=== PATIENT | female | born 1965 ===

== ENCOUNTER 2019-08-04 17:14 | Observation (INO) | payer MEDICAID, OTHER ==
[2019-08-04] MEDS ORDERED: LORazepam TAB(*) 1 MG PO ONE (17:45)
[2019-08-04] MEDS ORDERED: Ketorolac INJ* 30 MG/ML 1 ML VIAL IM ONE (17:45)
--- NOTE | 2019-08-04 17:45 | ED ---
Back Pain - HPI Summary HPI Summary: The patient is a a 53 y/o female presenting to [facility] accompanied by family with a chief complaint of atraumatic low back pain which is chronic but worsened around 1400 this afternoon. She reports that she has a history of back problems with unknown etiology, but it is usually well-managed. Today, she had been carrying wood, and then she developed severe back pain, so she sat down to rest. She placed a heating pad on the back to mild relief. When she stood up, she had increased pain and was unable to walk. Standing, lifting, bending, or any movement aggravates the pain. She endorses increased urgency to urinate but denies any incontinence of urine or stool. Pain is currently rated 10/10 in severity. She states that she has not had the pain as severe as todays episode. PMHx: asthma, kidney infection, fibromylagia. Nonsmoker, daily EtOH, no substance use. Medications reviewed. Allergies noted. - History of Current Complaint Chief Complaint: EDBackInjuryPain Stated Complaint: BACK PAIN PER PT Time Seen by Provider: 08/04/19 17:25 Hx Obtained From: Patient Onset/Duration: Sudden Onset, Lasting Hours, Still Present Onset/Duration: Started Hours Ago, Atraumatic, Still Present Timing: Constant Back Pain Location: Is Discrete @ - low back Severity Initially: Severe Severity Currently: Severe Pain Intensity: 10 Pain Scale Used: 0-10 Numeric Character: Sharp Aggravating Symptom(s): Movement, Lifting, Bending, Walking, Other - standing Alleviating Symptom(s): Nothing Associated Signs And Symptoms: Positive: Other - urgency of urine. Negative: Bladder Incontinence, Bowel Incontinence - Allergies/Home Medications Allergies/Adverse Reactions: Allergies Allergy/AdvReac Type Severity Reaction Status Date / Time MS Penicillins [Penicillins] Allergy Intermediate Hives Verified 07/16/16 10:11 Home Medications: Home Medications DULoxetine DR CAP* [Cymbalta CAP*] 60 mg PO DAILY 08/04/19 [History Confirmed ] Omeprazole (Nf) [Prilosec (NF)] 40 mg PO DAILY 08/04/19 [History Confirmed 08/04] PMH/Surg Hx/FS Hx/Imm Hx Endocrine/Hematology History: Denies: Hx Diabetes Cardiovascular History: Denies: Hx Congestive Heart Failure, Hx Hypertension, Hx Pacemaker/ICD Respiratory History: Reports: Hx Asthma, Hx Seasonal Allergies GI History: Reports: Hx Gastroesophageal Reflux Disease History: Reports: Hx Kidney Infection - 2010 Denies: Hx Dialysis, Hx Renal Disease Musculoskeletal History: Reports: Hx Back Problems, Hx Fibromyalgia, Other Musculoskeletal History - Cervical Pain Sensory History: Denies: Hx Hearing Aid Neurological History: Reports: Hx Migraine, Other Neuro Impairments/Disorders - States she has a Learning Disablility Psychiatric History: Reports: Hx Attention Deficit Hyperactivity Disorder, Hx Depression, Hx Suicide Attempt Denies: Hx Panic Disorder - Cancer History Hx Chemotherapy: No Hx Radiation Therapy: No - Surgical History Surgical History: Yes Surgery Procedure, Year, and Place: C-SECT 1989 Infectious Disease History: No Infectious Disease History: Denies: Traveled Outside the [place] in Last 30 Days - Family History Known Family History: Negative: Seizure Disorder - Social History Alcohol Use: Daily Hx Substance Use: No Substance Use Type: Reports: None Hx Tobacco Use: No Smoking Status (MU): Never Smoked Tobacco Review of Systems Negative: Other - incontinence of stool Positive: urgency. Negative: incontinence Positive: Arthralgia - low back All Other Systems Reviewed And Are Negative: Yes Physical Exam - Summary Physical Exam Summary: Appearance: The patient is well-nourished in no acute distress and in no acute pain. Skin: The skin is warm and dry, and skin color reflects adequate perfusion. HEENT: The head is normocephalic and atraumatic. The pupils are equal and reactive. The conjunctivae are clear and without drainage. Nares are patent and without drainage. Mouth reveals moist mucous membranes, and the throat is without erythema and exudate. The external ears are intact. The ear canals are patent and without drainage. The tympanic membranes are intact. Neck: The neck is supple with full range of motion and non-tender. There are no carotid bruits. There is no neck vein distension. Respiratory: Chest is non-tender. Lungs are clear to auscultation and breath sounds are symmetrical and equal. Cardiovascular: Heart is regular rate and rhythm. There is no murmur or rub auscultated. There is no peripheral edema and pulses are symmetrical and equal. Abdomen: The abdomen is soft and non-tender. There are normal bowel sounds heard in all four quadrants and there is no organomegaly palpated. Musculoskeletal: There is tenderness in the parasacral area. There is a negative straight leg raise. Extremities are non-tender with full range of motion. There is good capillary refill. There is no peripheral edema or calf tenderness elicited. Neurological: Patient is alert and oriented to person, place and time. The patient has symmetrical motor strength in all four extremities. Cranial nerves are grossly intact. Deep tendon reflexes are symmetrical and equal in all four extremities. Psychiatric: The patient has an appropriate affect and does not exhibit any anxiety or depression. Triage Information Reviewed: Yes Vital Signs On Initial Exam: Initial Vitals Temp Pulse Resp BP Pulse Ox 98.8 F 75 18 148/94 100 08/04/19 17:17 08/04/19 17:17 08/04/19 17:17 08/04/19 17:17 08/04/19 17:17 Vital Signs Reviewed: Yes Procedures - Sedation Patient Received Moderate/Deep Sedation with Procedure: No Diagnostics - Vital Signs Vital Signs Temp Pulse Resp BP Pulse Ox 08/04/19 17:17 98.8 F 75 18 148/94 100 - Laboratory Lab Statement: Any lab studies that have been ordered have been reviewed, and results considered in the medical decision making process. - CT Lumbar Spine CT CT Interpretation Completed By: Radiologist Summary of CT Findings: Impression: 1. Punctate nonobstructing left renal calculi. 2. Early degenerative disc and facet changes with no significant spinal or. foraminal stenosis. ED physician has reviewed this report. Re-Evaluation - Re-Evaluation First Eval Re-Evaluation Time: 21:20 Comment: We discussed results and plan for discharge if the patient is able to ambulate. Second Eval Re-Evaluation Time: 21:30 Comment: Patient unable to ambulate, will consult for admission Back Pain Course/Dx - Course Course Of Treatment: Ms. Davis was unable to get out of bed and ambulate in spite of parenteral ketorolac, by mouth Ativan and by mouth Percocet. After those medications she was much more comfortable in bed. CT showed no acute compression fracture. I spoke with Dr. Leonardo about admission for intractable pain - Diagnoses Provider Diagnoses: Low back strain - Provider Notifications Discussed Care Of Patient With: Margaret Leonardo - hospitalist Time Discussed With Above Provider: 21:45 Instructed by Provider To: Other - I discussed the patients case with Dr. Leonardo, who accepts the patient for admission. Discharge ED - Sign-Out/Discharge Documenting (check all that apply): Patient Departure - Patient accepted for admission by Dr. Leonardo. - Discharge Plan Condition: Stable Disposition: ADMITTED TO [facility] Referrals: Wilder Zuleta MD [Primary Care Provider] - - Billing Disposition and Condition Condition: STABLE Disposition: Admitted to [facility] - Attestation Statements Document Initiated by Raul: Yes Documenting Scribe: Trina Cleveland Provider For Whom Raul is Documenting (Include Credential): Dr. Rui Castellon MD Scribe Attestation: Trina Stokes scribed for Dr. Rui Castellon MD on 08/04/19 at 2150. Scribe Documentation Reviewed: Yes Provider Attestation: The documentation as recorded by the Trina puga accurately reflects the service I personally performed and the decisions made by me, Dr. Rui Castellon MD Status of Scribe Document: Viewed
[2019-08-04] MEDS ORDERED: oxyCODONE/Acetamin 5/325 MG* TAB PO ONE ×2 (19:45→19:46)
[2019-08-04] MEDS ORDERED: Acetaminophen TAB* 325 MG PO PRN (23:07)
[2019-08-04] MEDS ORDERED: Morphine INJ* 2 MG/ML 1 ML SYRINGE (TWO MG - NEW SYRINGE VERSION) IV PRN (23:07)
[2019-08-04] MEDS ORDERED: Ibuprofen TAB* 600 MG PO PRN (23:37)
[2019-08-04] MEDS ORDERED: Enoxaparin(*) 40 MG/0.4 ML SYR SUBCUT SCH (23:45)
[2019-08-05] MEDS: oxyCODONE/Acetamin 5/325 MG* TAB PO PRN ×4 (00:37→12:58)
--- NOTE | 2019-08-05 00:49 | HP ---
CC: Dr. Zuleta * HISTORY AND PHYSICAL: DATE OF ADMISSION: 08/04/19 TIME OF ADMISSION: 11:30 p.m. PRIMARY CARE PHYSICIAN: Dr. Zuleta. CHIEF COMPLAINT: Back pain. HISTORY OF PRESENT ILLNESS: This is a 53-year-old woman with history of fibromyalgia and chronic back pain, who presents to the emergency department with back pain that started today when she was carrying wood. She had been feeling well prior to this and she went outside to work in the yard and carried wood from approximately 12 p.m. to 1 p.m. She felt that her back was "acting up " during that time, but then she sat down to take a 15-minute break, and when she tried to get up, she could not. She was seen in the emergency department and had a lumbar spine CT which was unremarkable for fracture and showed early degenerative disk and facet changes with no significant spinal or foraminal stenosis; however, when the ER physician tried to get her out of bed, she was unable to and so it was felt she could not be returned to home. Alisha reports chronic low back and this is in the same location, however, it feels nothing like her usual back pain. She states she has been to 3 different pain specialists for back pain and no etiology has ever been found. She has not had trauma to the low back. She used to see Dr. Simms for injections, but does not any more. She sees Dr. Zuleta for fibromyalgia for which she takes only duloxetine. She had a lumbar spine MRI in 2012 which was unremarkable. She describes the pain as very low and feels the sharp pain that radiates to her groin. She has no numbness or tingling. No loss of bowel or bladder function. PAST MEDICAL HISTORY: Fibromyalgia, chronic back pain. PAST SURGICAL HISTORY: Back injections. FAMILY HISTORY: Mom had breast cancer. SOCIAL HISTORY: She works as a hairdresser and cleans houses. She does not smoke or drink alcohol. She lives alone. PHYSICAL EXAMINATION GENERAL: Alert, well-appearing female, who appears her stated age, in no distress, lying a stretcher. VITAL SIGNS: Temperature 98.8, heart rate 71, respiratory rate 18, pulse ox 98 % on room air, blood pressure 126/77. HEENT: Pupils are equal, round, and reactive to light. Oral mucosa is moist. NECK: No JVP. No adenopathy. LUNGS: Clear bilaterally. CHEST: She is in a regular rate and rhythm. No murmurs. ABDOMEN: Soft, nontender, nondistended. No guarding or rebound. She is barely able to roll on to one side so that I can feel her low back. The pain is localized over L5 to S1 and the midline and paraspinally. EXTREMITIES: No edema, rashes, or ulcers. She is able to lift both legs off the bed and her sensation is grossly intact in her bilateral lower extremities. Her patellar deep tendon reflexes are slightly hyperreflexic. IMAGING: Lumbar spine CT shows punctuate nonobstructing left renal calculi and early degenerative disk and facet changes with no significant spinal or foraminal stenosis. ASSESSMENT AND PLAN: This is a 53-year-old woman with history of fibromyalgia and chronic back pain, who presents to the emergency department with back pain after carrying wood today. 1. Huavt-bj-ptgraan low back pain. She has been unable to ambulate in the emergency department despite Percocet. We will admit her for OBV and continue heat packs, pain management, and the addition of NSAIDs. I will order a PT consult for the morning, and if she is still unable to walk, she can get an MRI of her lumbar spine. 2. Fibromyalgia, continue duloxetine. 3. DVT prophylaxis, Lovenox. 4. Full code. [id number]/CPS #: [id number] MTDD
[2019-08-05 01:41] LABS: Urine Appearance Clear; Urine Bilirubin Negative (Negative); Urine Blood Negative (Negative); Urine Color Yellow; Urine Glucose Negative (Negative); Urine Ketones Negative (Negative); Urine Nitrite Negative (Negative); Urine Protein Negative (Negative); Urine Specific Gravity 1.008 (1.010-1.030); Urine Urobilinogen Negative (Negative)
[2019-08-05] MEDS ORDERED: Cyclobenzaprine TAB* 10 MG PO PRN (08:32)
[2019-08-05] MEDS ORDERED: Ketorolac INJ* 30 MG/ML 1 ML VIAL IV PUSH PRN (08:33)
[2019-08-05] MEDS ORDERED: Acetaminophen TAB* 325 MG PO PRN (08:35)
[2019-08-05] MEDS ORDERED: DULoxetine DR CAP* 60 MG CAP.DR PO SCH (09:00)
[2019-08-05 11:10] VITALS: BP 114/74
--- NOTE | 2019-08-05 23:57 | DS ---
CC: Dr. Zuleta DISCHARGE SUMMARY: DATE OF ADMISSION: 08/04/19 DATE OF DISCHARGE: 08/05/19 PROVIDER: MARLI Yang. ATTENDING PHYSICIAN WHILE IN THE HOSPITAL: Dr. Gracie Hdz * (dictated by MARLI Yang). PRIMARY CARE PROVIDER: Dr. Zuleta. PRIMARY DIAGNOSIS: Muscular strain of the paraspinal muscles. SECONDARY DIAGNOSES: 1. Fibromyalgia. 2. Chronic back pain. HISTORY OF PRESENT ILLNESS/HOSPITAL COURSE: Alisha Davis is a 53-year-old white female with a past medical history significant for chronic back pain and fibromyalgia, who presented to the emergency department on 08/04/19 due to acute on chronic back pain. The patient reportedly has been doing some heavy lifting at home and started having worsening pain and presented to the emergency department. Please see the history and physical written by Dr. Margaret Leonardo for further details. The patient had CT of her lumbar spine in the emergency department without any acute findings. She was admitted to the hospital for pain control. By the day of discharge, she was having good pain control with conservative management with Tylenol, ibuprofen, Flexeril for muscle spasms and she was having good relief with oxycodone. She was able to ambulate and sit up to eat and therefore she was deemed safe for discharge and the patient was agreeable for this. On day of discharge, the patient had no focal neurological findings. No complaints of numbness or tingling. No fevers or chills. On exam, she did have some focal tenderness to palpation on the left side of the lumbar paraspinal muscle area. No spinous process tenderness. DISCHARGE PLAN: Diet: Regular unrestricted diet. Activity: The patient was advised to avoid heavy lifting or twisting until she starts to feel improved. Otherwise, she may return to normal activity as tolerated. DISCHARGE INSTRUCTIONS: The patient was advised to follow up with primary care provider in 1 week. At this time, if she is not improving, further testing should likely be considered. She was advised to return to emergency department if she was having fever, chills, numbness, tingling in her extremities, loss of bowel or bladder function, difficulty ambulating or other concerning symptoms. DISCHARGE MEDICATIONS: New medications: 1. Tylenol 975 mg p.o. q.6 hours p.r.n. pain. 2. Flexeril 10 mg p.o. t.i.d. p.r.n. muscle spasms. 3. Ibuprofen 800 mg p.o. q.8 hours p.r.n. pain. 4. Oxycodone 5 mg p.o. q.6 hours p.r.n. severe pain, maximum daily dose 4 tabs. Continued home medications: 1. Duloxetine 60 mg p.o. daily. 2. Omeprazole 40 mg p.o. daily. CONDITION ON DISCHARGE: Stable. DISPOSITION: Home. TIME SPENT: Approximately 40 minutes was spent on this discharge, approximately half that time was spent at bedside evaluating the patient and discussing the plan of care. MARLI YANG [id number] #: [id number] MTDD
== END 2019-08-05 13:10 | disposition home or self-care (01) ==
LOC: ED 17:14 → SSU 23:07
PROVIDERS: ADMIT Internal Medicine; ATTEND Internal Medicine
DX: S29.012A Strain of muscle and tendon of back wall of thorax, initial encounter (principal); G89.29 Other chronic pain; M54.9 Dorsalgia, unspecified; M51.34 Other intervertebral disc degeneration, thoracic region; M48.04 Spinal stenosis, thoracic region; X50.0XXA Overexertion from strenuous movement or load, initial encounter; N20.0 Calculus of kidney; Y92.9 Unspecified place or not applicable; M79.7 Fibromyalgia; Z79.899 Other long term (current) drug therapy; K21.9 Gastro-esophageal reflux disease without esophagitis
CPT/HCPCS: 72131; 81003; 96372; 99284; A9270-GY; G0378; J1650; J1885